=== PATIENT | female | born 1950 | race Two or more races ===

== ENCOUNTER 2017-12-06 07:27 | Outpatient (CLI) | payer OTHER | END 2017-12-06 07:34 | disposition home or self-care (01) | LOC: SONOGRAMA 07:27 → MAMO-SONO 08:15 | DX: R63.4 Abnormal weight loss (principal); R52 Pain, unspecified ==

== ENCOUNTER 2017-12-27 07:32 | Outpatient (CLI) | payer OTHER | END 2017-12-27 17:00 | disposition home or self-care (01) | LOC: TOM 07:32 | DX: R10.33 Periumbilical pain (principal); R10.32 Left lower quadrant pain; R10.31 Right lower quadrant pain | CPT/HCPCS: 74177; Q9965 ==

== ENCOUNTER 2020-06-22 10:40 | Emergency (ER) | payer OTHER ==
[~2020-06-22] VITALS: Ht 152.4 cm; Wt 49.0 kg
[2020-06-22] MEDS ORDERED: MINIVELLE1 EAC1 (10:50)
[2020-06-22] MEDS ORDERED: LEXAPRO5 MG (10:51)
[2020-06-22] MEDS ORDERED: ALENDRONATE SODI5 MG (10:51)
[2020-06-22] MEDS ORDERED: CELEBREX200MG PO (12:22)
[2020-06-22] MEDS ORDERED: MUPIROCIN1 G1 TOP (12:22)
[2020-06-22] MEDS ORDERED: CIPRO500 MG PO (12:22)
== END 2020-06-22 13:02 | disposition home or self-care (01) ==
LOC: ER 10:40
DX: S50.811A Abrasion of right forearm, initial encounter (principal); S80.211A Abrasion, right knee, initial encounter; W18.09XA Striking against other object with subsequent fall, initial encounter; Y93.A9 Activity, other involving cardiorespiratory exercise; Y92.832 Beach as the place of occurrence of the external cause; Y99.8 Other external cause status

== ENCOUNTER 2020-06-29 09:42 | Outpatient (CLI) | payer OTHER ==
[~2020-06-29 09:42] MED LIST: ALENDRONATE SODI5 MG; CELEBREX200MG PO; CIPRO500 MG PO; LEXAPRO5 MG; MINIVELLE1 EAC1; MUPIROCIN1 G1 TOP
== END 2020-06-29 10:30 | disposition home or self-care (01) ==
LOC: WOUND MED 09:42
PROVIDERS: ATTEND Specialist
DX: L98.492 Non-pressure chronic ulcer of skin of other sites with fat layer exposed (principal); R60.0 Localized edema
CPT/HCPCS: G0463; A4554; A4930; A6216; A6219; A6220

== ENCOUNTER 2020-07-06 08:45 | Outpatient (CLI) | payer OTHER | END 2020-07-06 09:00 | disposition home or self-care (01) | LOC: WOUND MED 08:45 | PROVIDERS: ATTEND Specialist | DX: L98.492 Non-pressure chronic ulcer of skin of other sites with fat layer exposed (principal); R60.0 Localized edema | CPT/HCPCS: 11042; A4554; A4930; A6216; A6219; A6220 ==

== ENCOUNTER 2020-07-15 08:45 | Outpatient (CLI) | payer OTHER | END 2020-07-15 09:00 | disposition home or self-care (01) | LOC: WOUND MED 08:45 | PROVIDERS: ATTEND Specialist | DX: L98.492 Non-pressure chronic ulcer of skin of other sites with fat layer exposed (principal); R60.0 Localized edema | CPT/HCPCS: A4554; A4930; A6216; G0463 ==

== ENCOUNTER 2020-08-23 07:08 | Outpatient (CLI) | payer OTHER | END 2020-08-23 07:11 | disposition home or self-care (01) | LOC: TOM 07:08 | PROVIDERS: ATTEND Internal Medicine | DX: Z12.11 Encounter for screening for malignant neoplasm of colon (principal) ==

== ENCOUNTER 2022-11-23 09:17 | Outpatient (CLI) | payer OTHER | END 2022-11-23 09:20 | disposition home or self-care (01) | LOC: RAD 09:17 | DX: R05.1 Acute cough (principal) ==

== ENCOUNTER → 2023-01-05 10:46 | Outpatient (CLI) | payer OTHER | END | disposition home or self-care (01) | LOC: LAB 10:46 | PROVIDERS: ATTEND Radiology Diagnostic Radiology | DX: D30.3 Benign neoplasm of bladder (principal) ==

== ENCOUNTER 2023-01-09 10:14 | Outpatient (CLI) | payer OTHER | END 2023-01-09 10:21 | disposition home or self-care (01) | LOC: MRI 10:14 | PROVIDERS: ATTEND Obstetrics & Gynecology | DX: D30.3 Benign neoplasm of bladder (principal); D41.4 Neoplasm of uncertain behavior of bladder | CPT/HCPCS: 72197; Q9965; 72196 ==